=== PATIENT | male | born 1955 | race Caucasian/White ===

== ENCOUNTER 2021-01-10 22:48 | Emergency (ER) | payer OTHER ==
[~2021-01-10] VITALS: Ht 167.6 cm; Wt 81.6 kg
[2021-01-10 23:17] VITALS: BP_SYST 155
[2021-01-11] MEDS ORDERED: LIDOCAINE 1%, 20 ML MDV 20 ML ONE (00:11)
[2021-01-11] MEDS ORDERED: LIDOCAINE 1% 10 MG/ML, 20 ML MDV INJ ONE (00:15)
[2021-01-11] MEDS ORDERED: DIPH-TET-PERTUS Vaccine 0.5 ML VIAL (ADACEL) I.M. ONE (00:30)
[2021-01-11] MEDS ORDERED: BACITRACIN 1 GM OINT TP ONE (00:48)
[2021-01-11 01:06] VITALS: BP_SYST 129
== END 2021-01-11 01:04 | disposition home or self-care (01) ==
LOC: SED 22:48
DX: S61.512A Laceration without foreign body of left wrist, initial encounter (principal); W45.8XXA Other foreign body or object entering through skin, initial encounter; Y93.89 Activity, other specified; Y92.89 Other specified places as the place of occurrence of the external cause; Y99.8 Other external cause status
CPT/HCPCS: 12001; 90471; 90715; 99283; J2001